=== PATIENT | female | born 1955 | race Caucasian/White ===

== ENCOUNTER → 2016-04-23 | Outpatient (CLI) | payer BC ==
[~2016-04-23] MED LIST: AMBIEN10 MG PO; ATIVAN PO; ATIVAN0.5 MG PO; BENADRYL25 MG PO; CALCIUM 500 + D1 TAB; CEREFOLIN; ESTRATEST TABLE1 TAB; LUNESTA PO; MOBIC; MULTIVITAMIN1 UDCAP PO; RANITIDINE HCL150 M1 PO; TUMS; ZOLOFT; ZOLOFT PO
--- NOTE | ~2016-04-23 | CT71 ---
[facility] A Service of [facility] RADIOLOGY TEXT RESULTS PATIENT: CHE PEDRAZA LOCATION: [facility] : 51 UNIT #: [id number] AGE: [address]: Brock Nettles MD SEX: F ORDER DR: [id number] [place] [id number] MR#: [id number] #: [id number] NAME: CHE PEDRAZA : 1955 SEX: F STUDY DATE/TIME: 04/23/2016 13:15 UNIT: [facility] ROOM: STUDY DESCRIPTION: CT Head Wo Contrast Attending Physician: Brock Nettles M.D. Ordering Physician: Brock Nettles M.D. Primary Care Physician: Brock Nettles M.D. MEDICAL IMAGING REPORT This report is preliminary unless electronic signature is present. EXAM CT brain without contrast media, 04/24/2015 HISTORY SUPPLIED Dizziness and vertigo for years, dizziness worse over the last 4 weeks. TECHNIQUE Transaxial imaging of the brain was performed without contrast media. There are no prior studies for comparison. FINDINGS Ventricular size and configuration is normal. No intra or extraaxial mass lesions, fluid collections or mass effect are seen. No focal areas of low attenuation or evidence of acute intracranial hemorrhage. Normal aeration of the middle ear structures and mastoid air cells is noted. Visualized sinuses are clear. CONCLUSION Normal noncontrast CT of the brain. Dictated by... Efrain Varghese M.D. THIS IS AN ELECTRONICALLY VERIFIED REPORT Efrain Varghese M.D. at 04/24/2016 2:53 PM MARQUITA/chayo TD: 04/24/2016 05:22 JOB #: [id number] [facility] A Service [facility] RADIOLOGY TEXT RESULTS PATIENT: CHE PEDRAZA LOCATION: [facility] : 51 UNIT #: [id number] AGE: [address]: Brock Nettles MD SEX: F ORDER DR: MEDICAL IMAGING REPORT
== END | disposition home or self-care (01) ==
LOC: SCT 07:35
DX: R42 Dizziness and giddiness (principal)
CPT/HCPCS: 70450